=== PATIENT | female | born 1985 | race Two or more races ===

== ENCOUNTER 2019-05-10 13:43 | Outpatient (CLI) | payer OTHER ==
[~2019-05-10 13:43] MED LIST: ORTHO TRI-7 DAYSX1
[2019-06-02] MEDS ORDERED: VASOTEC5 MG PO (11:10)
[2019-06-02] MEDS ORDERED: METFORMIN HCL1000 M2 PO (11:11)
[2019-06-02] MEDS ORDERED: MICROZIDE12.5 MG PO (11:11)
== END 2019-05-10 13:52 | disposition home or self-care (01) ==
LOC: MAMO-SONO 13:43
DX: R92.0 Mammographic microcalcification found on diagnostic imaging of breast (principal); N60.11 Diffuse cystic mastopathy of right breast; N60.12 Diffuse cystic mastopathy of left breast

== ENCOUNTER 2019-06-30 07:00 | Outpatient (CLI) | payer OTHER ==
[~2019-06-30 07:00] MED LIST changes: +METFORMIN HCL1000 M2 PO; +MICROZIDE12.5 MG PO; +VASOTEC5 MG PO
== END 2019-06-30 15:00 | disposition home or self-care (01) ==
LOC: LAB 07:00
DX: D64.89 Other specified anemias (principal); D68.8 Other specified coagulation defects; N39.0 Urinary tract infection, site not specified; E04.1 Nontoxic single thyroid nodule; E78.2 Mixed hyperlipidemia; I10 Essential (primary) hypertension

== ENCOUNTER 2019-07-02 05:24 | Day surgery (SDC) | payer OTHER | END 2019-07-02 12:20 | disposition home or self-care (01) | LOC: CIR.AMB 05:24 | DX: N63.23 Unspecified lump in the left breast, lower outer quadrant (principal) ==

== ENCOUNTER 2019-07-04 11:53 | Emergency (ER) | payer OTHER ==
[~2019-07-04] VITALS: Ht 167.6 cm; Wt 95.3 kg
== END 2019-07-04 13:14 | disposition home or self-care (01) ==
LOC: ER 11:53
DX: L25.8 Unspecified contact dermatitis due to other agents (principal)

== ENCOUNTER 2023-08-15 10:37 | Outpatient (CLI) | payer OTHER | END 2023-08-15 10:46 | disposition home or self-care (01) | LOC: RAD 10:37 | DX: J18.9 Pneumonia, unspecified organism (principal) ==

== ENCOUNTER 2023-09-05 07:19 | Outpatient (CLI) | payer OTHER | END 2023-09-05 07:25 | disposition home or self-care (01) | LOC: RAD 07:19 | PROVIDERS: ATTEND Surgery Plastic and Reconstructive Surgery | DX: R45.0 Nervousness (principal) ==

== ENCOUNTER 2024-03-04 16:05 | Emergency (ER) | payer OTHER ==
[~2024-03-04] VITALS: Ht 167.6 cm; Wt 71.7 kg
[2024-03-04 18:38] LABS: HEMATOCRIT 36.7 % (36.0-45.00); HEMOGLOBIN 12.5 g/dL (12.0-15.00); MEAN CELL VOLUME 80.2 fL (80.00-100.00); MEAN CORPUSCULAR HEMOGLOBIN 27.2 pg (27.00-32.0); PLATELET COUNT 207 K/uL (150-450); RED BLOOD COUNT 4.58 M/uL (4.00-6.00); RED CELL DISTRIBUTION WIDTH 14.6 % (11.5-14.5)
[2024-03-04 18:42] LABS: PH,URINE 5.5 (5.0-8.0); URINE APPEARANCE Clear; URINE BILIRRUBIN Negative (NEGATIVE); URINE BLOOD Trace; URINE COLOR Yellow; URINE GLUCOSE Negative (NEGATIVE); URINE KETONE Negative (NEGATIVE); URINE LEUKOCYTE Small; URINE NITRATE Negative; URINE PROTEIN Negative (NEGATIVE); URINE UROBILINOGEN 0.2 E.U./dl
[2024-03-04 18:45] LABS: URINE BACTERIA 3416.4 uL (0.0-1933); URINE WBC 74.8 uL (0.0-23.2)
[2024-03-04 18:48] LABS: URINE RBC 0.9 uL (0.0-20.8)
[2024-03-04 18:58] LABS: ALBUMIN 4.3 gm/dL (3.4-5.0); BILIRUBIN TOTAL 0.24 mg/dL (0.3-1.2); CALCIUM 9.4 mg/dL (8.5-10.1); CREATININE SERUM 0.73 mg/dL (0.55-1.02); GFR 88.75; GLOBULINA 3.3 G/DL (2.4-3.5); POTASSIUM 3.84 mEq/L (3.5-5.1); TOTAL PROTEIN 7.6 gm/dL (6.4-8.2)
== END 2024-03-04 21:01 ==
LOC: ER 16:06
PROVIDERS: Nurse Practitioner Family
DX: N39.0 Urinary tract infection, site not specified (principal); R31.9 Hematuria, unspecified; R10.9 Unspecified abdominal pain; Z88.2 Allergy status to sulfonamides; Z88.6 Allergy status to analgesic agent